=== PATIENT | female | born 1950 | race Caucasian/White ===

== ENCOUNTER 2024-05-31 05:56 | Day surgery (SDC) | payer MEDICARE, OTHER, SELFPAY ==
[2024-05-18 13:39] VITALS: BMI 37.2
[2024-05-31] VITALS (14 sets, daily range): BP systolic 115–171; BP diastolic 57–79; PULSE 60–79; RESP 14–24; TEMP 35.6–37; O2SAT 95–100; BMI 37.2
--- NOTE | 2024-05-31 | DI.RAD.S_ITS ---
PROCEDURE: XR HIP W PEL IF DONE LT 2V INDICATIONS: post op total left hip TECHNIQUE: AP pelvis and lateral view of the hip acquired. COMPARISON: [facility] [place], XR PELVIS WITH LATERAL HIP LEFT, 04/01/2024, 15:00. FINDINGS: Bones: Patient is status post left hip arthroplasty, with hardware components in expected positions. Redemonstration of right hip arthroplasty. The visualized bony structures appear intact. Soft tissues: Overlying postoperative changes are noted. No suspicious soft tissue densities. IMPRESSION: Expected post-operative appearance of a hip arthroplasty. Dictated by: Pj Berkowitz M.D. on 05/31/2024 at 13:08 Approved by: Pj Berkowitz M.D. on 05/31/2024 at 13:09
--- NOTE | 2024-05-31 06:00 | DI.RAD.S_ITS ---
PROCEDURE: XR PELVIS 1-2V INDICATIONS: left total hip TECHNIQUE: Intra-operative view of the pelvis and hip acquired. COMPARISON: [facility] [place], [place], XR PELVIS WITH LATERAL HIP LEFT, 04/01/2024, 15:00. FINDINGS: Bones: Intraoperative devices prior to placement of arthroplasty prostheses are in expected positions. No fractures or suspicious bony lesions. Previously placed right hip arthroplasty is stable. Soft tissues: Overlying surgical retractors are present, along with other intraoperative changes. IMPRESSION: Intraoperative left hip arthroplasty. Dictated by: Patti Calle M.D. on 05/31/2024 at 9:47 Approved by: Patti Calle M.D. on 05/31/2024 at 9:48
[2024-05-31] MEDS: VANCOMYCIN 1,500 MG/300 ML PIGGYBACK 200 MG IV (06:50)
[2024-05-31] MEDS: ACETAMINOPHEN 325 MG TABLET 975 MG PO (06:53)
[2024-05-31] MEDS: CELECOXIB 200 MG CAPSULE PO (06:54)
[2024-05-31] MEDS: FAMOTIDINE 20 MG/2 ML VIAL IV (06:54)
[2024-05-31] MEDS: LACTATED RINGERS 1,000 ML 42 ML IV (06:57)
--- NOTE | 2024-05-31 07:47 | PM.PREOP ---
Pre-operative Note Interval Note History & Physical reviewed/Exam performed by Physician: Yes Changes to H&P: No
--- NOTE | 2024-05-31 07:47 | PM.OP.1 ---
Operative Date/Time/Diagnoses Date of procedure: 05/31/24 Time of procedure: 08:00 Pre-op diagnosis: left hip OA Post-op diagnosis: same Procedure & Clinicians Procedure: Left total hip arthroplasty posterior approach Same procedure as scheduled: Yes Indications: The patient has had progressively worsening left hip pain with radiographic changes consistent with arthritis. Non-operative management has failed and the patient has requested total hip replacement. The risks, benefits and alternatives to surgery were discussed with the patient prior to proceeding. Risks discussed included, but were not limited to, failure to relieve pain, leg length discrepancy, dislocation, stiffness, infection, nerve damage, deep venous thrombosis, pulmonary embolism, stroke, coma, heart attack, permanent paralysis and , as well as the potential need for eventual revision of the prosthetic. Surgeon: Angela Campbell [employer] Assistant: Amari Diehl Anesthesia Type: General Operative Notes Findings: Severe left hip OA, adequate bone, adequate stability Closure Type: primary Specimen(s): none sent Prosthetic devices, grafts, tissues, transplants, or devices: Campbell and nephew R3 52, polar stem size 2 standard offset, neutral poly liner,one 6.5 mm screw, 36 by +0 CO Estimated Blood Loss (mL): 250 Blood products transfused: none Procedure in detail: The patient was seen in the pre-operative area, where the patient identified the left hip as the operative site and this was marked with my initials. The patient received pre-operative antibiotics and was taken to the operating room and placed on the operative table in the right lateral decubitus position after satisfactory anesthesia. A multimedia specialist out was performed. The left leg was prepared from the ankle to the iliac crest with ChloroPrep in the usual fashion and draped through sterile drapes. PA was used during the procedure and was essential for intraoperative retraction and safe implantation of the components. The hip was approached through an approximately 20 cm incision centered over the greater trochanter and curving gently posteriorly as it went proximally. This was carried sharply to the fascia bryan, which was divided and retracted with a self retaining retractor. The trochanteric bursa was excised with care being taken to avoid the sciatic nerve, which was identified and protected throughout the case. The short external rotators were incised and the capsulomuscular flap was raised and tagged for later repair. The hip was dislocated, and a femoral neck osteotomy performed approximately 15 mm above the lesser trochanter. Retractors were placed around the femur. The canal was opened with a box cutting osteotome, followed by a T handled reamer and a lateralizing reamer. The chili pepper broach was then used, followed by sequential broaching until there was good stability of the broach in the femur. Retractors were placed to expose the acetabulum. The labrum and central soft tissues were removed. Reaming was performed initially going up in 2 mm increments, then 1 mm increments until good bite was obtained with an odd sized reamer. The cup 1 mm larger than the last reamer was then inserted using the appropriate anteversion guides. It was further stabilized with a single screw. A trial neutral liner was placed. The broach was placed in the canal. A trial head and neck were then placed and the hip relocated and checked for leg length and stability. An intraoperative film confirmed the component position and no evidence of fracture. The patient was stable in the position of sleep, of squatting, and could be put through a range of motion with 45 degrees internal rotation without dislocation. At 90 degrees flexion, internal rotation to 80? was possible before dislocation. This was felt to be satisfactory and the appropriate components were opened, and the trials were removed. The acetabular liner was impacted into position. The final stem was then impacted into the prepared femoral canal. A brief Betadine soak was performed while trialing with head options. The hip was meticulously irrigated with normal saline. Finally the femoral head was impacted onto the stem. The acetabulum was cleared of all material and the hip relocated one final time. The capsulomuscular flap was then repaired to the greater trochanter though an awl hole using the tag sutures. The short external rotators were repaired with a nonabsorbable suture. The fascia bryan was closed with Vicryl. The subcutaneous layer was closed with barbed sutures and skin larry. A guilherme dressing was applied and the patient was taken to recovery having tolerated the procedure well. Complications: none Post-operative Condition: stable Disposition: Acute Care Plan for aftercare: The patient will be maintained on a standard total hip replacement protocol with weight bearing as tolerated and posterior hip precautions. The patient will receive Xarelto 10mg q day and sequential compression devices for DVT prophylaxis. The patient will be discharged home when safe for the home environment.
[2024-05-31] MEDS: CEFAZOLIN 2 GM/100 ML PREMIX 100 ML IV ×2 (08:10→16:37)
--- NOTE | 2024-05-31 08:42 | SUR.OPER ---
Lateral on padded OR bed. Gel axillary roll. Arms secured on padded armboard with pillow supporting top arm. Padded hip positioner braces x4 - anterior and posterior chest and pelvis. Additional gel pad used anterior pelvis. Gel pad under bottom leg from knee to foot and secured with tape over sheet.
[2024-05-31] MEDS: BUPIVACAINE LIPOSOME 266 MG/20 ML VIAL INJ (08:49)
[2024-05-31] MEDS: BUPIVACAINE 0.25% (PF) 60 ML, EPINEPHrine 0.3 MG INJ (08:50)
[2024-05-31] MEDS: LACTATED RINGERS 1,000 ML 100 ML IV (11:44)
[2024-05-31] MEDS: OXYCODONE IR 5 MG TABLET PO (12:52)
[2024-05-31] MEDS: ACETAMINOPHEN 325 MG TABLET 650 MG PO (12:52)
[2024-05-31] MEDS: IBUPROFEN 400 MG TABLET PO ×2 (14:15→20:23)
--- NOTE | 2024-05-31 14:30 | OT.IP.EVAL ---
Current Diagnoses Unilateral primary osteoarthritis, left hip (05/31/24) Surgery Performed Operation Date: 05/31/24 07:45 Actual Procedures p Total Hip Arthroplasty Posterior(Left) - Angela Campbell MD Past Medical History (Last Updated 05/18/24 @ 14:22 by Concepción Lyn, RN) Anxiety Breast cancer, left (2019) DVT (deep venous thrombosis) (2006) Hearing loss HTN (hypertension) Macular degeneration JIM on CPAP Osteoarthritis Ovarian cancer (1983) Sciatica Surgical History (Last Updated 05/18/24 @ 14:17 by Concepción Lyn RN) History of hysterectomy History of total right hip replacement (2006) Hx of appendectomy Hx of cholecystectomy Hx of lumpectomy (2019) Status post hysterectomy with oophorectomy Occupational Therapy Inpatient Evaluation/Re-Eval M1 PT/OT-IP Prior Functional Status Start: 05/31/24 14:37 Freq: NEEDED Status: Active Protocol: Document 05/31/24 14:38 [facility] (Rec: 05/31/24 14:58 [facility] [id number]) Medical Review Prior Functional Status Communication I Mobility and Gait Pt did not use a device but had lots of pain and only able to walk distance down her driveway and back in order to get her mail. Activities of Daily Living and IADL's Pt had pain but able to do ADL and IADL needs. Social History Household Members spouse Living Arrangements House Number of Floors (Floors) Two Floors Number of Stairs To Enter/Railing? 2 steps with bilateral wide rails. Home Environment Standard Height Toilet,Tub/ Shower Home Equipment Front Wheel Walker,Straight Cane,Long Handled Sponge,Long Handled Shoe Horn,Net Web Application Developer,Sock Aid,Lift Recliner Additional Social History Comment Pt has an adjustable high bed that currently does not work. Pt states her not able to assist much , but her sister in law lives close by and can assist. Pt states to sleep in her lift chair initially. M2 OT-IP Current Condition Start: 05/31/24 14:37 Freq: Status: Active Protocol: Document 05/31/24 14:38 [facility] (Rec: 05/31/24 14:58 [facility] [id number]) Occupational Therapy Current Condition Current Condition Evaluation Date 05/31/24 Treatment Diagnosis S/P L BC posterior precautions Diagnosis Onset Date 05/31/24 Post Operative Precautions Posterior Hip Precautions No Hip Flexion > 90 degrees,No Hip Internal Rotation,No Hip Adduction M3 OT- IP Subjective and Pain Start: 05/31/24 14:37 Freq: Status: Active Protocol: Document 05/31/24 14:38 [facility] (Rec: 05/31/24 14:58 [facility] [id number]) OT- Subjective Occupational Therapy Visit Type Type Initial Evaluation Visit Start Time 14:00 Visit Stop Time 14:30 Occupational Therapy Visit Comments Patient Comments Pt wanting to get up to use the BSC. Patient/Caregiver Goals TO go home. OT Pain Assessment Pain When Pain Assessed At Rest Pain Present Pain Present Pain Reported Location Left hip Intensity 7 Scale Used Numeric (0 - 10) M4 OT- IP ADL's Start: 05/31/24 14:37 Freq: Status: Active Protocol: Document 05/31/24 14:38 [facility] (Rec: 05/31/24 14:58 [facility] [id number]) OT [id number] Comments OT Self-Feeding Comments Not at meal time. OT ADL-Grooming Comments OT Grooming Comments Not performed. OT ADL-Oral Care Comments Oral Care Comments NOt performed. OT ADL-Dressing General Eval Lower Body Dressing Ability Maximum Assistance Areas Needing Assistance Socks OT ADL-Toileting General Evaluation Toileting Ability Minimal Assistance Areas Needing Assistance Manage Clothing Comments OT Toileting Comments Assist for clothing management needs. Spoke of getting a BSC , use of wipes,pads,brief, and best to stand to wipe in order to best follow her hip precautions. OT ADL-Bathing Comments OT Bathing Comments Pt will benefit from getting tub bench like she used last time for her RTHA back in 2006 . M5 OT- IP IADL's Start: 05/31/24 14:37 Freq: Status: Active Protocol: Document 05/31/24 14:38 [facility] (Rec: 05/31/24 14:58 [facility] [id number]) OT-Instrumental Activities of Daily Living Deficits IADL Deficits Identified Deficits Home Safety Awareness Awareness of Need for Assistance at Home Good Awareness Ability to Problem Solve Emergency Able to Problem Solve Situations Meal Preparation Meal Preparation Caregiver Provides Assist Signals Intelligence Analyst Signals Intelligence Analyst Caregiver Provides Assist M6 OT- IP Functional Cognition Start: 05/31/24 14:37 Freq: Status: Active Protocol: Document 05/31/24 14:38 [facility] (Rec: 05/31/24 14:58 [facility] [id number]) Cognitive Factors Limiting Selfcare Function Cognitive Ability Level of Alertness Alert,Drowsy Patient Orientation Name,Place,Situation Attention Span Ability Capable of Focused Attention, Capable of Sustained Attention Ability to Follow Commands Able to Follow One Step Commands with Increased Time, Able to Follow One Step Commands with Repetition Cognitive Comments Cognitive Assessment Comments Pt slightly groggy and needing reminders to follow her hip precautions during mobility and ADL needs. OT- Vision and Hearing OT- Hearing Assessment OT- Hearing Assessment Use of Hearing Aids OT- Vision Assessment Visual Acuity Glasses All The Time Visual Attentiveness WFL Occular Pursuits WFL M7 OT- IP Mobility and Balance Start: 05/31/24 14:37 Freq: Status: Active Protocol: Document 05/31/24 14:38 [facility] (Rec: 05/31/24 14:58 [facility] [id number]) OT- Bed Mobility Assessment Supine to Sit Supine to Sit Assist Moderate Assistance Sit to Supine Sit to Supine Assist Moderate Assistance OT-Transfer Assessment Sit to and From Stand Sit to and from Stand Moderate Assistance,2 Person Assistance Transfers Transfer Ability Moderate Assistance,1 Person Assistance Technique Transfer Destination Bed,Bedside Commode Transfer Technique Stand Step Pivot Devices Transfer Assistive Devices Gait Belt,Front Wheeled Walker Comments Mobility Comments MODA to to assist her LLE to the edge of the bed. Educated to use the gait belt, cane , or assist as needed. MODA X2 to stand to the FWW and after more steady on her feet MODA X1 with FWW. OT- Balance Assessment Sitting Balance and Reactions Static Sitting Balance Ability Good Dynamic Sitting Balance Ability Good Standing Balance and Reactions Static Standing Balance Ability Fair Dynamic Standing Balance Ability Fair M8 OT- IP Objective Assessments Start: 05/31/24 14:37 Freq: Status: Active Protocol: Document 05/31/24 14:38 [facility] (Rec: 05/31/24 14:58 [facility] [id number]) OT Gross Range of Motion Upper Extremity Range of Motion Assessment Within Functional Limits OT Strength Upper Extremity Strength Assessment Within Functional Limits M9 OT- IP Assessment and Plan Start: 05/31/24 14:37 Freq: Status: Active Protocol: Document 05/31/24 14:38 [facility] (Rec: 05/31/24 14:58 [facility] [id number]) OT Summary Assessment and Plan Potential Rehabilitation Potential Good Analytic Complexity at Evaluation Low Summary OT Impairments Pain,Strength,Balance, Functional Mobility,Grooming, Dressing,Toileting,Bathing, Toilet Transfers,Shower Transfers,Activity Tolerance Progress Towards Goals Slow Progress due to Pain Assessment Summary Pt low complexity and main barriers are steps, will benefit from getting a BSC and tub bench for ADL needs. Pt to go home with 24/7 assist and attend outpt PT when medically stable . Goals Self-Feeding Goal Independent Grooming Goal Independent Dressing Goal Standby Assistance,Long Handled Shoe Horn,Net Web Application Developer,Sock Aid Toileting Goal Independent Bathing Goal Minimal Assistance Toilet Transfer Goal Independent Shower Transfer Goal Standby Assistance,Tub Transfer Bench Days to Meet Goals 7 Frequency of Treatment Other frequency 5x/week Treatment Plan OT Treatment Plan ADL Training,Functional Mobility,Patient/Family Education,Discharge Planning Other Treatment Recommendations and Next practice ADL's with LB Treatment Focus dressing equipment Discharge Recommendations OT Discharge Recommendations Home with 24/7 Assist Available,Outpatient PT Home Equipment Needs BSC,tub bench Transportation Needs at Discharge Private Vehicle
--- NOTE | 2024-05-31 15:30 | PT.IIE ---
Current Diagnoses Unilateral primary osteoarthritis, left hip (05/31/24) Surgery Performed Operation Date: 05/31/24 07:45 Actual Procedures p Total Hip Arthroplasty Posterior(Left) - Angela Campbell MD Surgical History (Last Updated 05/18/24 @ 14:17 by Concepción Lyn, RN) History of hysterectomy History of total right hip replacement (2006) Hx of appendectomy Hx of cholecystectomy Hx of lumpectomy (2019) Status post hysterectomy with oophorectomy Medical History (Last Updated 05/18/24 @ 14:22 by Concepción Lyn RN) Anxiety Breast cancer, left (2019) DVT (deep venous thrombosis) (2006) Hearing loss HTN (hypertension) Macular degeneration JIM on CPAP Osteoarthritis Ovarian cancer (1983) Sciatica Physical Therapy Inpatient Evaluation/Re-Eval M1 PT/OT-IP Prior Functional Status Start: 05/31/24 16:29 Freq: NEEDED Status: Active Protocol: Document 05/31/24 15:30 [facility] (Rec: 05/31/24 16:43 AB [id number]) Medical Review Prior Functional Status Medical History Reviewed Yes Communication able to make needs known; NEZ PERCE Mobility and Gait pt stated that she was modified independent with all mobilities and ambulation without AD Activities of Daily Living and IADL's per OT note: Pt had pain but able to do ADL and IADL needs. Social History Household Members spouse Living Arrangements House Number of Floors (Floors) Two Floors Number of Stairs To Enter/Railing? 2 steps with bilateral wide rails and can only hold on to one rail at a time pt will stay on main level of the house Home Environment Standard Height Toilet,Tub/ Shower Home Equipment Front Wheel Walker,Straight Cane,Long Handled Sponge,Long Handled Shoe Horn,Assembly Person,Sock Aid,Lift Recliner Additional Social History Comment pt stated that spouse can help her some; her [id number] who lives next door will also be able to assist her M2 PT-IP Current Condition Start: 05/31/24 16:29 Freq: NEEDED Status: Active Protocol: Document 05/31/24 15:30 [facility] (Rec: 05/31/24 16:43 [facility] [id number]) Physical Therapy Current Condition Current Condition Evaluation Date 05/31/24 Treatment Diagnosis s/p L BC posterior;difficulty in walking Onset Date 05/31/24 M3 PT-IP Subjective Start: 05/31/24 16:29 Freq: NEEDED Status: Active Protocol: Document 05/31/24 15:30 [facility] (Rec: 05/31/24 16:43 AB [id number]) Subjective Physical Therapy Visit Type Type Initial Evaluation Visit Start Time 15:30 Visit Stop Time 16:25 Number of DOCTOR OF DENTAL MEDICINE Visits 0 Physical Therapy Visit Comments Patient Comments agreeable to do PT Therapy Pain Assessment Pain When Pain Assessed At Rest Pain Present Pain Present Pain Reported Location Left hip Intensity 6 Scale Used Numeric (0 - 10) Pain Management Techniques Apply Cold,Distraction, Modification of Treatment,Re- positioning,Timing of Activity with Medications M4 PT-IP Mobility and Gait Start: 05/31/24 16:29 Freq: NEEDED Status: Active Protocol: Document 05/31/24 15:30 [facility] (Rec: 05/31/24 16:43 AB [id number]) PT-Bed Mobility Assessment Supine to Sit Supine to Sit Standby Assistance Sit to Supine Sit to Supine Moderate Assistance,1 Person Assistance,Head of Bed Elevated PT-Transfer Assessment Sit to and From Stand Sit to and from Stand Minimal Assistance,1 Person Assistance,Use of Upper Extremities Equipment Transfer Assistive Device Gait Belt,Front Wheeled Walker Orthotic/Prosthetic Devices or Brace: No Comments Mobility Comments pt supine in bed and agreed to do PT. obtained PLOF and home set up. pt finished with OT but unable to recal precautions. educated pt on posterior hip precautions and pt able to recall after education. BP in supine: 156/ 73. pt completed supine to sit SBA. able to sit on EOB SBA. no c/o dizziness. completed sit to stand min A and ambulated in room using FWW ~ 30 ft min A and cues. pt stated that hip pain was better after moving. pt requested to go back to bed to rest. completed sit to supine mod A for elevating LLE up to bed. positioned pt in bed. call light and table placed within reach. informed pt regarding caregiver training. pt called her [id number] and will come in ~ 930 am tomorrow for training. Gait Assessment Gait Gait Assistance Required: Minimum Assistance,1 Person Assist Distance (Feet) 30 Able to Maintain Weight Bearing Status Yes During Gait Assistive Devices Assistive Device Gait Belt,Front Wheeled Walker Orthotic/Prosthetic Devices or Brace: No Gait Deviations General Gait Pattern Antalgic,Decreased Stride Length,Decreased Feet Clearance Factors Limiting Gait Function Factors Limiting Gait Function Decreased Activity Tolerance, Decreased Strength,Limited Range of Motion,Pain,Poor Balance,Poor Safety Awareness PT-Balance Assessment Sitting Balance and Reactions Static Sitting Balance Ability Normal Dynamic Sitting Balance Ability Good Standing Balance and Reactions Static Standing Balance Ability Fair Dynamic Standing Balance Ability Fair Device Used FWW M5 PT-IP Objective Assessments Start: 05/31/24 16:29 Freq: NEEDED Status: Active Protocol: Document 05/31/24 15:30 [facility] (Rec: 05/31/24 16:43 AB [id number]) Orientation Orientation/Cognition Level of Alertness Alert Orientation Name,Place,Situation Language Function Ability Hard of Hearing Safety Awareness Decreased Safety Awareness Memory Description Short Term Impaired Gross Range of Motion Lower Extremity ROM Assessment Within Functional Limits Strength Lower Extremity Strength Assessment Left Impaired Hip 3-/5 Knee 3+/5 Coordination Assessment Gross Coordination Gross Coordination WNL Sensation Assessment Sensation Sensation Description Numbness Comments Sensation Comments slight numbness on L hip per pt Muscle Tone Muscle Tone WNL Yes M6 PT-IP Treatment Start: 05/31/24 16:29 Freq: NEEDED Status: Active Protocol: Document 05/31/24 15:30 AB (Rec: 05/31/24 16:43 AB [id number]) Physical Therapy Treatment Education Education Provided Precautions,Weight Bearing Status,Post-Op Packet,Safety M7 PT-IP Assessment and Plan Start: 05/31/24 16:29 Freq: NEEDED Status: Active Protocol: Document 05/31/24 15:30 [facility] (Rec: 05/31/24 16:43 AB [id number]) PT Summary Assessment and Plan Potential Rehabilitation Potential Good Status of Condition at Evaluation Evolving Summary Impairments Pain,Strength,Balance, Coordination,Sensation, Cognition,Bed Mobility, Transfers,Gait,Activity Tolerance Assessment Summary pt is a 74 y/o F s/p L BC posterior approach POD 0. pt with L hip posterior precautions and is WBAT. pt requiring min A with sit to stand and ambulation using FWW . caregiver training set up for tomorrow at ~ 930 am. will continue to assess progress. Goals Bed Mobility Goal Independent Transfer Goal Independent,Front Wheeled Walker Gait Goal Independent,Front Wheel Walker Gait Distance 150 Other Goals up/down 2 steps 1 rail SBA Days to Meet Goals 5 Frequency of Treatment Frequency Of Treatment Twice a Day Treatment Plan Physical Therapy Treatment Plan Bed Mobility Training,Transfer Training,Gait Training, Therapeutic Exercise,Balance Retraining,Post Op Education, Discharge Planning,Hot or Cold Pack,Neuromuscular Re-ed, Coordination Retraining,Manual Therapy Precautions Posterior Hip Precautions No Hip Flexion > 90 degrees,No Hip Internal Rotation,No Hip Adduction Weight Bearing Status Weight Bearing Status Weight Bear as Tolerated Allowed Weight Bearing Amount (enter % LLE WBAT or #) (%) Recommendations To Nursing Amount of Assist Needed 1 Person Assist Discharge Recommendations PT Discharge Recommendations Home with Assistance, Outpatient PT Transportation Needs at Discharge Private Vehicle
[2024-05-31] MEDS: OXYCODONE IR 10 MG TABLET PO ×2 (16:37→20:23)
[2024-05-31] MEDS: ASPIRIN EC 81 MG TABLET PO (20:22)
[2024-05-31] MEDS: DOCUSATE 100 MG CAPSULE PO (20:23)
[2024-05-31] MEDS: TAMOXIFEN 10 MG TABLET 20 MG PO (20:24)
[2024-06-01] MEDS: IBUPROFEN 400 MG TABLET PO ×3 (01:11→10:55)
[2024-06-01] MEDS: OXYCODONE IR 5 MG TABLET PO ×4 (01:12→10:55)
[2024-06-01] MEDS: CEFAZOLIN 2 GM/100 ML PREMIX 100 ML IV (01:12)
[2024-06-01] MEDS: LACTATED RINGERS 1,000 ML 100 ML IV (01:29)
[2024-06-01 05:13] LABS: Hematocrit 32.6 % (36-46); Hemoglobin 10.8 g/dL (12.0-16.0)
[2024-06-01 08:00] VITALS: BP 119/50; PULSE 71; RESP 18; TEMP 36.5; O2SAT 95
--- NOTE | 2024-06-01 08:18 | P.DS_ITS ---
History of Present Illness History of Present Illness Date Patient Seen: 06/01/24 Time Patient Seen: 08:18 Chief complaint: Left Total Hip Arthroplasty Narrative: Operative Date/Time/Diagnoses Date of procedure: 05/31/24 Time of procedure: 08:00 Pre-op diagnosis: left hip OA Post-op diagnosis: same Procedure & Clinicians Procedure: Left total hip arthroplasty posterior approach Same procedure as scheduled: Yes Indications: The patient has had progressively worsening left hip pain with radiographic changes consistent with arthritis. Non-operative management has failed and the patient has requested total hip replacement. The risks, benefits and alternatives to surgery were discussed with the patient prior to proceeding. Risks discussed included, but were not limited to, failure to relieve pain, leg length discrepancy, dislocation, stiffness, infection, nerve damage, deep venous thrombosis, pulmonary embolism, stroke, coma, heart attack, permanent paralysis and , as well as the potential need for eventual revision of the prosthetic. Surgeon: Angela Campbell Cooking Chef: Amari Diehl Anesthesia Type: General Operative Notes Findings: Severe left hip OA, adequate bone, adequate stability Closure Type: primary Specimen(s): none sent Prosthetic devices, grafts, tissues, transplants, or devices: Campbell and nephew R3 52, polar stem size 2 standard offset, neutral poly liner,one 6.5 mm screw, 36 by +0 CO Estimated Blood Loss (mL): 250 Blood products transfused: none Discharge Providers Provider Discharge Date: 06/01/24 Primary care physician: JOSE Brown Consults: 05/31/24 06:00 Consult to Anesthesiology Routine Comment: Consulting Provider: Anesthesiologist Reason for consultation: Regional block for post operative pain control 05/31/24 11:04 Consult to Discharge Planning Routine Comment: Consult to Occupational Therapy Evaluate & Treat Comment: Physician Instructions: Evaluate and treat Consult to Physical Therapy Evaluate & Treat Comment: Physician Instructions: post op BC protocol Discharge provider: Inez Miranda PA-C Summary Hospital Course Discharge Diagnosis: Left hip osteoarthritis, s/p left total hip arthroplasty Hospital Course: Ms Clark's hospital course was unremarkable. On the morning of POD# 1, she was feeling well and wanted to go home. She was eating and voiding without difficulty and her pain was well-controlled with oral medications. She was evaluated by PT throughout her stay and they felt she was appropriate for discharge with family. Exam Vital Signs (past 8 hours): - 06/01/24 08:00 Temperature 97.7 F Pulse Rate 71 Respiratory Rate 18 Blood Pressure 119/50 L Pulse Oximetry 95 Oxygen Flow Rate 0 Oxygen Delivery Method Room Air Oxygen Flow Rate 0 Narrative Exam Narrative: 5/5 strength in hip flexors, quadriceps, hamstrings, PF, DF, EHL on left. Sensation to light touch intact throughout LLE. Calf soft and compressible. JANUARY dressing unable to be seen as pt is sitting down, but functioning. Objective Labs 06/01/24 04:50 Labs: Laboratory Results - last 24 hr 06/01/24 04:50 Hgb 10.8 L Hct 32.6 L PFSH Medical History (Updated 05/18/24 @ 14:22 by Concepción Lyn RN) DVT (deep venous thrombosis) (2006) Anxiety Sciatica Osteoarthritis Breast cancer, left (2019) Ovarian cancer (1983) HTN (hypertension) JIM on CPAP Hearing loss Macular degeneration Surgical History (Updated 05/18/24 @ 14:17 by Concepción Lyn RN) Hx of appendectomy History of total right hip replacement (2006) Hx of cholecystectomy Hx of lumpectomy (2019) History of hysterectomy Status post hysterectomy with oophorectomy Social History household members: spouse Smoking Status: Former smoker alcohol intake: current Discharge Assessment & Plan Assessment and Plan Assessment: Left hip osteoarthritis, s/p left total hip arthroplasty Plan of Treatment: Discharge home, multimodal pain control, outpt PT, f/u in office in 2 weeks as scheduled. H/o DVT following right BC several years ago; xarelto 10mg q day for VTE prophylaxis x 4 weeks, after which she can resume daily ASA. Discharge Plan Discharge Plan Patient Disposition: Home Discharge orders & Medications Discharge Orders: Discharge (Order); Ordered 06/01/24 Ordered By: Inez Miranda Prescriptions: New Xarelto 10 mg Tablet 10 mg PO DAILYCC Qty: 28 0RF Rx Instructions: Start on 06/02/2024 and take once daily x 4 weeks. DO NOT take aspirin or ibuprofen while taking Xarelto. RESTART aspirin after finishing Xarelto. Continued alprazolam 0.25 mg Tablet 0.25 mg PO BEDTIME gabapentin 300 mg Capsule 300 mg PO BEDTIME PRN (Reason: Nerve pain) atenolol 50 mg Tablet 25 mg PO DAILY tamoxifen 20 mg Tablet 20 mg PO BEDTIME loratadine [Allerclear] 10 mg Tablet 10 mg PO DAILY acetaminophen 500 mg Tablet 1,000 mg PO QD-BID PRN (Reason: Pain) ibuprofen 200 mg Tablet 400 mg PO TID Discontinued aspirin 81 mg Capsule 81 mg PO DAILY Follow up/Referrals: Kaya Jo ARNP [Primary Care Provider] - Angela Campbell MD [Physician] - 06/09/24 2:00 pm (appt:06/09 @ 2:[address] Campbell @ [facility] please arrive 15 min prior to scheduled appointment time ) Diet/Activity/Treatments Diet: Diet as Tolerated Activity: Weightbearing as tolerated. Posterior hip precautions. Cold/Heat Therapy: Ice to hip as needed for pain. Skin/Wound/Dressing Care Report to your healthcare provider any signs of infection, such as:: chills, fever, night sweats, unusual drainage and unusual redness Dressing: May shower. Leave JANUARY dressing in place until follow up in office. In 5-7 days, batteries will , at which point you can cut off the battery pack and dispose of it but leave the dressing on. No bathing or otherwise soaking incision. Call the office if the dressing becomes saturated inside. Visit Report/Discharge Packet Instructions: DI for Hip Replacement, DI for Prescription Opioid Use Stand Alone Forms: Patient Portal/API, Surgery Discharge Discharge Data Primary Care Provider: Kaya Jo Attending Provider: Angela Campbell
[2024-06-01] MEDS: ASPIRIN EC 81 MG TABLET PO (08:23)
[2024-06-01] MEDS: DOCUSATE 100 MG CAPSULE PO (08:23)
[2024-06-01] MEDS: LORATADINE 10 MG TABLET PO (08:24)
--- NOTE | 2024-06-01 09:35 | PT.IPTN ---
Current Diagnoses Unilateral primary osteoarthritis, left hip (05/31/24) Surgery Performed Operation Date: 05/31/24 07:45 Actual Procedures p Total Hip Arthroplasty Posterior(Left) - Angela Campbell MD Physical Therapy Treatment Note M2 PT-IP Current Condition Start: 05/31/24 16:29 Freq: NEEDED Status: Discharge Protocol: Document 05/31/24 15:30 AB (Rec: 05/31/24 16:43 AB [id number]) Physical Therapy Current Condition Current Condition Evaluation Date 05/31/24 Treatment Diagnosis s/p L BC posterior;difficulty in walking Onset Date 05/31/24 M3 PT-IP Subjective Start: 05/31/24 16:29 Freq: NEEDED Status: Discharge Protocol: Document 06/01/24 09:35 AB (Rec: 06/01/24 14:12 AB [id number]) Subjective Physical Therapy Visit Type Type Treatment Note Visit Start Time 09:35 Visit Stop Time 10:40 Number of FITTINGS TIGHTENER Visits 0 Physical Therapy Visit Comments Patient Comments agreeable to do PT Therapy Pain Assessment Pain When Pain Assessed At Rest Pain Present Pain Present Pain Reported Location Left hip Intensity 3 Scale Used Numeric (0 - 10) Pain Management Techniques Apply Cold,Distraction, Modification of Treatment,Re- positioning,Timing of Activity with Medications M4 PT-IP Mobility and Gait Start: 05/31/24 16:29 Freq: NEEDED Status: Discharge Protocol: Document 06/01/24 09:35 AB (Rec: 06/01/24 14:12 AB [id number]) PT-Bed Mobility Assessment Supine to Sit Supine to Sit Standby Assistance Sit to Supine Sit to Supine Minimal Assistance PT-Transfer Assessment Sit to and From Stand Sit to and from Stand Contact Guard Assistance,1 Person Assistance,Use of Upper Extremities Equipment Transfer Assistive Device Gait Belt,Front Wheeled Walker Orthotic/Prosthetic Devices or Brace: No Transfers Transfer Destination Bed,Chair Transfer Technique ambulation Transfer Ability Level of Assist Contact Guard Assistance,1 Person Assistance,Use of Upper Extremities Comments Mobility Comments pt sitting on the chair. pt's [id number] in room for caregiver training. reviewed posterior hip precautions with pt and [id number]. educated caregiver on how to use safety belt and how to assist pt. caregiver was able to put safety belt on pt and assisted pt with sit to stand. PT initially cueing pt. instructed pt to sit back down on chair. pt repeated sit to stand again with caregiver providing cues to pt. pt ambulated ~ 15ft to EOB using FWW CGA with caregiver assisting. pt completed sit to supine min A with LE elevation to bed. sister was able to assist pt. pt completed supine to sit SBA. able to sit on EOb SBA. completed sit to stand from EOB CGA and ambulated in the hallway using FWW ~ 50 ft CGA. siter was able to assist pt safely. stair climbing training. educated pt and [id number] on how to do stairs. pt completed up/down steps holding on to L rail with B hands min A and cues . pt's sister in law was able to assist pt with stairs. assisted pt back to her room. ambulated from w/c to chair using fWW CGA. positioned pt on the chair. call light and table placed within reach. pt and [id number] without further concerns. Gait Assessment Gait Gait Assistance Required: Contact Guard Assist,1 Person Assist Distance (Feet) 50 Able to Maintain Weight Bearing Status Yes During Gait Assistive Devices Assistive Device Gait Belt,Front Wheeled Walker Orthotic/Prosthetic Devices or Brace: No Gait Deviations General Gait Pattern Antalgic,Decreased Stride Length,Decreased Feet Clearance Factors Limiting Gait Function Factors Limiting Gait Function Decreased Activity Tolerance, Decreased Strength,Difficulty Following Directions,Limited Range of Motion,Pain,Poor Balance,Poor Safety Awareness Stair Climbing Assessment Evaluation Level of Assist On Stairs Minimal Assistance,1 Person Assistance Devices Stair Climbing Assistive Devices Left Railing Technique/Endurance Stair Climbing Direction Ascend and Descend Stair Climbing Technique Step to Step Number of Steps Climbed 3 Stair Climbing Set # Repetitions (reps) 1 M5 PT-IP Objective Assessments Start: 05/31/24 16:29 Freq: NEEDED Status: Discharge Protocol: Document 05/31/24 15:30 AB (Rec: 05/31/24 16:43 AB [id number]) Orientation Orientation/Cognition Level of Alertness Alert Orientation Name,Place,Situation Language Function Ability Hard of Hearing Safety Awareness Decreased Safety Awareness Memory Description Short Term Impaired Gross Range of Motion Lower Extremity ROM Assessment Within Functional Limits Strength Lower Extremity Strength Assessment Left Impaired Hip 3-/5 Knee 3+/5 Coordination Assessment Gross Coordination Gross Coordination WNL Sensation Assessment Sensation Sensation Description Numbness Comments Sensation Comments slight numbness on L hip per pt Muscle Tone Muscle Tone WNL Yes M6 PT-IP Treatment Start: 05/31/24 16:29 Freq: NEEDED Status: Discharge Protocol: Document 06/01/24 09:35 AB (Rec: 06/01/24 14:12 AB [id number]) Physical Therapy Treatment Education Education Provided Precautions,Weight Bearing Status,Safety M7 PT-IP Assessment and Plan Start: 05/31/24 16:29 Freq: NEEDED Status: Discharge Protocol: Document 06/01/24 09:35 AB (Rec: 06/01/24 14:12 AB [id number]) PT Summary Assessment and Plan Potential Rehabilitation Potential Good Summary Impairments Pain,ROM,Strength,Balance, Coordination,Sensation,Tone, Cognition,Bed Mobility, Transfers,Gait,Activity Tolerance Progress Towards Goals Slow Progress due to Activity Tolerance Assessment Summary caregiver training completed and pt's [id number] was able to safely assist pt with mobility. pt plans to go home today. pt has outpt PT set up. Goals Bed Mobility Goal Independent Transfer Goal Independent,Front Wheeled Walker Gait Goal Independent,Front Wheel Walker Gait Distance 150 Other Goals up/down 2 steps 1 rail SBA Days to Meet Goals 5 Frequency of Treatment Frequency Of Treatment Twice a Day Treatment Plan Physical Therapy Treatment Plan Bed Mobility Training,Transfer Training,Gait Training, Therapeutic Exercise,Balance Retraining,Post Op Education, Discharge Planning,Hot or Cold Pack,Neuromuscular Re-ed, Coordination Retraining,Manual Therapy Precautions Posterior Hip Precautions No Hip Flexion > 90 degrees,No Hip Internal Rotation,No Hip Adduction Weight Bearing Status Weight Bearing Status Weight Bear as Tolerated Allowed Weight Bearing Amount (enter % LLE WBAT or #) (%) Recommendations To Nursing Amount of Assist Needed 1 Person Assist Discharge Recommendations PT Discharge Recommendations Home with Assistance, Outpatient PT Transportation Needs at Discharge Private Vehicle
--- NOTE | 2024-06-01 10:32 | CM.DANOTE ---
Patient is a 74 yo female who was admitted [facility] on 05/31/24 for LTHA. Pt has M[place] and [place] for [place] and her PCP is Kaya Jo. EMR was reviewed. Per Ortho PA, pt tolerated procedure well and voiding independently and pain seems to be controlled and tolerating diet and to work more with PT this morning towards plan of discharge home with family assist and discharge orders placed. Per PT, recommending home with assist and outpt but CG training set up for 0930 today to confirm stairs and safe d/c home. SW met bedside with pt and Sister edy and explained role and pt confirms she lives in [facility] with her and has FWW for home use after surgery and is mostly independent with ADLs and has hx of other hip surgery back in 2006. Pt states her spouse and sister edy (who lives nearby) can assist at d/c and pt already has outpt PT set up after discharge. Pt denies any hx of HH or SNF and preference is home and will stay on the main floor until she can manage stairs better. Plan: SW to follow for final CG training and stairs this morning with PT towards plan of discharge home later today with outpt PT set up. SMITHA Oneil Discharge Planning/Care Management CM Discharge Assessment Start: 06/01/24 10:28 Freq: Status: Active Protocol: Document 06/01/24 10:28 BF (Rec: 06/01/24 10:32 BF [id number]) Discharge Planning Assessment Assigned Long Wall Mining Machine Helper SMITHA Álvarez DPOA/Assigned Designee Name spouse Advance Directives? Yes Advance Directives on File No History Provided By Patient,Family Member,Medical Record Has Patient been admitted in last 30 No days? Prior Living Arrangements House Household Members spouse Type of transporation used prior to Drives own vehicle admit Independent with ADL's Yes Is patient alert and oriented? Yes Caregiver for Another No Community Services used prior to Physical Therapy admission: DME Already Rented / Owned FWW / Walker,Cane Patient/Family Preference OP PT Therapy Barriers to Discharge No Discharge Plan Home Community Services Physical Therapy Transportation Arrangement Sister edy bedside for CG training and plans to transport at d/c Referrals Initiated None needed Whiteboard Updated in Patient Room with Yes name and ext. # of Long Wall Mining Machine Helper Review Status In Process Please Provide Date Initial DC 06/01/24 Assessment Was Performed Next Review Type Continued Stay Review Pre-Anesthesia Assessment Start: 05/18/24 13:39 Freq: Status: Active Protocol: Document 05/18/24 13:39 CAB (Rec: 05/18/24 14:33 CAB [id number]) Pre-Anesthesia Assessment PAC Comment Phone assessment Preferred Name Rachel Patient Information Reviewed Via Phone Assessment Assessment Completed With Patient Diagnostic Results BMP/CMP,CBC,EKG Comment Done per pt, surgeon has, not avail at time of assess Primary Care Provider Kaya Jo Seen Specialist in Last 12 Months Yes Specialist Seen Oncologist,Opthamologist/ Refining Equipment Operator,Orthopedist,Sleep specialist Primary Language Kenyan Dust Mill Operator Required No Height 160.02 cm Weight 95.254 kg Body Mass Index (BMI) 37.2 Hearing Ability Normal Visual Assist Glasses Dentition Type Teeth, Natural Present Barriers to Learning None Hx Anesthesia Reactions No Hx Family Anesthesia Reaction No Hx Malignant Hyperthermia No Hx Blood Transfusions No Anesthesia Review Requested No Medical Affairs Leader No alcohol intake current alcohol intake frequency holidays/special occasions only Smoking Status Former smoker how long ago did patient quit smoking 2014 Substance Use Type [#R] does not use Pain Present Pain Reported Musculoskeletal Symptoms Abnormal Gait,Difficulty Walking,Joint Pain History of Falling (Recent or History of Yes ) Patient is completely paralyzed or No completely immobile Mental Status Oriented to own ability Is patient on oxygen? No Does patient have MC/SOB No Hx Sleep Apnea Yes CPAP/BIPAP use prescribed and used routinely Will Bring CPAP/BIPAP DOS Yes Currently Taking a Beta Rose Yes: Atenolol Can You Climb a Flight of Stairs Without No SOB Hx Chest Pain No Hx SOB No Hx Syncope or Dizziness No Anti-Coagulant Therapy Yes: ASA r/t hx of DVT '07-ok to continue per Miguel dang/Dr. Campbell's office Has a Requirements Engineer No Cardiac Testing No Hx Pacemaker/ICD No Pacemaker Rep Required? No Cardiac Clearance Received Not Applicable Diet Type At Home Regular Dysphagia No Gastrointestinal Symptoms Reflux Chronic UTI No Urinary Catheter Present No Hx Urinary Self Catheterization No Diabetes No Patient No Lactating No Hx Drug Resistant Organism No Presence of External or Internal Medical Yes: CPAP, tiffanie hearing aids, Devices right hip Comment No covid symptoms x 2 months Marital Status Lives With spouse Number of Floors (Floors) Two Floors Support System Family,Spouse Does the Patient Have Assistance After Yes: and sister in-law Surgery will assist with care at [place] Patient Discharge Plan Description Return Home Comment Pt advised possible same day surgery per surgeon Feels Safe in Current Environment Yes Been Physically Hurt or Threatened By a No Person in Current Environment Do you have thoughts of harming yourself None or others? Are you currently considering suicide? No Do you have a plan to hurt yourself or No Plan others? Do You Have Any Spiritual Beliefs That No May Affect Your HC Choices? Do You Have Any Cultural Practices That No May Affect Your HC Choices? Comment Religion Who Can We Speak to About Patient's Care Family, friends Identifying Code for Release of Patient Declines to issue Information Health Care Proxy/Next of Kin Parker () Health Care Proxy Emergency Contact Name Ronda (sister in-law) Emergency Contact Advance Directives? Yes Advance Directives on File No Requested Patient Bring Advanced Yes Directives DOS Power of Lead Software Test Engineer No PAC Instructions Assistance for 24 hours post- op,Bring CPAP/BIPAP,Do not shave/clip surgical site, Durable medical equipment, Medications to take/avoid, Nasal antibiotic,No ETOH/ petroleum product on skin DOS, NPO,Pre-surgical wash,Sturdy shoes/comfortable clothes,Do not bring valuables and remove jewelry
--- NOTE | 2024-06-01 11:22 | PC.NURSE ---
Patient is A&OX4, VSS, afebrile on RA. DBP slightly low and atenolol antihypertensive med held this a.m. JANUARY dressing c/d/i with green flashing light.Patient had been up out of bed to bathroom voiding multiple times with X1 SBA using FWW. She is evaluated by and cleared for discharge pending PT/OT and caregiver training appointment this a.m. Patient does well with PT but requests a rest before discharge this a.m. She verbalizes understanding of medications, activity limitations, site care, s/sx of infection as well as follow up appointment. She is escorted via w/ch to private vehicle with family member for discharge home this a.m.
== END 2024-06-01 11:55 | disposition home or self-care (01) ==
LOC: OR 05:58 → AC 10:29
PROVIDERS: PCP Nurse Practitioner; Referring Provider Orthopaedic Surgery; Visit Provider Orthopaedic Surgery
PROC: 0SRB0JZ Replacement of Left Hip Joint with Synthetic Substitute, Open Approach (ICD-10-PCS; CPT 27130; principal; 2024-05-31 07:45)
DX: M16.12 Unilateral primary osteoarthritis, left hip (principal)
CPT/HCPCS: 27130; 36415; 72170; 73502; 85014; 85018; 97162; 97165; 97530; 97535; C1776; C9290; J0171; J0690; J2250; J2405; J2704; J3010